=== PATIENT | male | born 1970 | race Caucasian/White ===

== ENCOUNTER 2016-10-16 19:28 | Emergency (ER) | payer MEDICARE, OTHER ==
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
--- NOTE | 2016-10-16 21:08 | XR ---
EXAMINATION TYPE: XR chest 2V DATE OF EXAM: 10/16/2016 9:02 PM COMPARISON: November 17, 2015 HISTORY: Pain TECHNIQUE: Frontal and lateral views of the chest are obtained. FINDINGS: There is no focal air space opacity, pleural effusion, or pneumothorax seen. The cardiac silhouette size is within normal limits. The osseous structures are intact. IMPRESSION: No acute cardiopulmonary process.
[2016-10-16 21:48] VITALS: BP 140/74; PULSE 88; RESP 18; TEMP 97.7
== END 2016-10-16 21:48 | disposition home or self-care (01) ==
LOC: EC 19:28
DX: M94.0 Chondrocostal junction syndrome [Tietze] (principal); Z87.891 Personal history of nicotine dependence
CPT/HCPCS: 71020; 99284

== ENCOUNTER 2016-12-12 19:42 | Emergency (ER) | payer MEDICARE, OTHER ==
[2016-12-12 19:53] VITALS: BP 124/83; PULSE 79; RESP 18; TEMP 97.1
[2016-12-12] MEDS ORDERED: CYCLOBENZAPRINE 10 MG TAB PO STA (20:10)
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
== END 2016-12-12 20:20 | disposition home or self-care (01) ==
LOC: EC 19:42
DX: M54.5 Low back pain (principal); Z87.891 Personal history of nicotine dependence
CPT/HCPCS: 99282; 99283

== ENCOUNTER 2016-12-20 19:26 | Emergency (ER) | payer MEDICARE ==
[2016-12-20 19:49] VITALS: BP 134/88; PULSE 60; RESP 18; TEMP 98.2
[2016-12-20] MEDS ORDERED: KETOROLAC 60 MG/2 ML VIAL IM STA (19:57)
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
--- NOTE | 2016-12-20 20:53 | XR ---
Lumbar spine HISTORY: Low back pain 2 views of the lumbar spine on 3 images Lumbar vertebral bodies show preserved height, alignment, and bone mineralization. Multilevel spondyl osis is present. Some mild loss of disc height present at L2-3, L5-S1. IMPRESSION: Degenerative disc disease.
== END 2016-12-20 21:03 ==
LOC: EC 19:26
DX: M51.36 Other intervertebral disc degeneration, lumbar region (principal); S39.012A Strain of muscle, fascia and tendon of lower back, initial encounter; Z87.891 Personal history of nicotine dependence; X58.XXXA Exposure to other specified factors, initial encounter
CPT/HCPCS: 99283; 96372; 72100; J1885

== ENCOUNTER 2017-05-13 10:46 | Emergency (ER) | payer MEDICARE, OTHER ==
[2017-05-13 10:58] VITALS: RESP 18
--- NOTE | 2017-05-13 11:48 | XR ---
EXAMINATION TYPE: XR tibia fibula LT DATE OF EXAM: 05/13/2017 COMPARISON: NONE HISTORY: Pain TECHNIQUE: 2 view left tibia and fibula FINDINGS: No acute fractures are evident. Joint spaces appear preserved. Soft tissues are unremarkabl e. IMPRESSION: 1. Normal left tibia and fibula.
--- NOTE | 2017-05-13 11:48 | XR ---
EXAMINATION TYPE: XR foot complete LT DATE OF EXAM: 05/13/2017 COMPARISON: NONE HISTORY: Pain TECHNIQUE: Three-view left foot FINDINGS: No acute fractures are evident. Joint spaces are preserved. Soft tissues are normal. IMPRESSION: 1. Normal three-view left foot
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
[2017-05-13 12:10] VITALS: BP 143/75; PULSE 67; TEMP 98.2
== END 2017-05-13 12:10 | disposition home or self-care (01) ==
LOC: EC 10:46
DX: M79.662 Pain in left lower leg (principal); M79.661 Pain in right lower leg; Z87.891 Personal history of nicotine dependence
CPT/HCPCS: 99283

== ENCOUNTER 2017-11-19 19:43 | Emergency (ER) | payer MEDICARE, OTHER ==
[2017-11-19 19:53] VITALS: BP 137/74; PULSE 91; RESP 18; TEMP 97.9
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
== END 2017-11-19 20:16 | disposition home or self-care (01) ==
LOC: EC 19:43
DX: J02.9 Acute pharyngitis, unspecified (principal); Z87.891 Personal history of nicotine dependence
CPT/HCPCS: 99282

== ENCOUNTER 2018-02-21 17:57 | Inpatient (IN) | payer MEDICARE, OTHER ==
[2018-02-21] MEDS ORDERED: SODIUM CHLORIDE 0.9% 1,000 ML IV STA (18:19)
[2018-02-21 18:56] LABS: Anisocytosis Slight; Basophils % (A) 1 %; Eosinophils # (A) 0.3 k/uL (0-0.7); Eosinophils % (A) 4 %; HCT 24.8 % (39.0-53.0); Hypochromasia Marked; Lymphocytes # (A) 1.3 k/uL (1.0-4.8); Lymphocytes % (A) 20 %; MCH 14.6 pg (25.0-35.0); MCV 56.3 fL (80.0-100.0); Microcytosis Marked; Monocytes # (A) 0.5 k/uL (0-1.0); Monocytes % (A) 7 %; Neutrophils # (A) 4.4 k/uL (1.3-7.7); Neutrophils % (A) 66 %; Platelet Count 269 k/uL (150-450); Poikilocytosis Slight; RDW 19.2 % (11.5-15.5); WBC 6.6 k/uL (3.8-10.6)
[2018-02-21 19:01] LABS: Calcium 10.8 mg/dL (8.4-10.2); HGB 6.4 gm/dL (13.0-17.5); Potassium 4.1 mmol/L (3.5-5.1); Total Bilirubin 0.4 mg/dL (0.2-1.3); Total Protein 6.5 g/dL (6.3-8.2)
[2018-02-21 19:07] LABS: Amorphous Sediment,Urine Few /hpf; Appearance,Urine Cloudy (Clear); Bilirubin,Urine Negative (Negative); Blood,Urine Negative (Negative); Color,Urine Light Yellow; Glucose,Urine (UA) Negative (Negative); Ketones,Urine Negative (Negative); Leukocyte Esterase,Urine Negative (Negative); Mucus,Urine Rare /hpf; Nitrite,Urine Negative (Negative); PH, Urine 6.5 (5.0-8.0); Protein,Urine Negative (Negative); Specific Gravity,Urine 1.008 (1.001-1.035); Urobilinogen,Urine <2.0 mg/dL (<2.0); WBC,Urine 2 /hpf (0-5)
[2018-02-21] MEDS ORDERED: PANTOPRAZOLE 40 MG/10 ML VIAL IVP STA (19:19)
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
[2018-02-21] MEDS: SODIUM CHLORIDE 0.9% 1,000 ML IV SCH (20:21)
[2018-02-21 22:03] VITALS: BMI 22.8
[2018-02-22] MEDS: ACETAMINOPHEN TAB 325 MG TAB PO PRN ×2 (03:58→18:05)
[2018-02-22 06:18] LABS: Anisocytosis Moderate; Basophils % (A) 0 %; Eosinophils # (A) 0.2 k/uL (0-0.7); Eosinophils % (A) 4 %; HCT 25.5 % (39.0-53.0); Hypochromasia Marked; Lymphocytes # (A) 1.1 k/uL (1.0-4.8); Lymphocytes % (A) 19 %; MCH 15.9 pg (25.0-35.0); MCHC 27.2 g/dL (31.0-37.0); MCV 58.5 fL (80.0-100.0); Mean Platelet Volume 9.3; Microcytosis Marked; Monocytes # (A) 0.5 k/uL (0-1.0); Monocytes % (A) 8 %; Neutrophils # (A) 3.8 k/uL (1.3-7.7); Neutrophils % (A) 66 %; Platelet Count 235 k/uL (150-450); Poikilocytosis Moderate; RBC 4.35 m/uL (4.30-5.90); RDW 20.8 % (11.5-15.5); WBC 5.7 k/uL (3.8-10.6)
[2018-02-22 06:26] LABS: HGB 6.9 gm/dL (13.0-17.5)
[2018-02-22 06:31] LABS: INR 1.1 (<1.2); Prothrombin Time 10.7 sec (9.0-12.0)
[2018-02-22 06:35] LABS: Partial Thromboplastin Time 21.3 sec (22.0-30.0)
[2018-02-22] MEDS: SODIUM CHLORIDE 0.9% 1,000 ML IV SCH ×2 (08:48→23:30)
[2018-02-22] MEDS: PANTOPRAZOLE 40 MG/10 ML VIAL IV SCH (12:01)
[2018-02-22 20:56] LABS: Anisocytosis Moderate; HCT 27.2 % (39.0-53.0); HGB 7.9 gm/dL (13.0-17.5); Hypochromasia Marked; MCH 17.5 pg (25.0-35.0); MCV 60.2 fL (80.0-100.0); Mean Platelet Volume 8.8; Microcytosis Marked; Platelet Count 234 k/uL (150-450); Poikilocytosis Marked; RBC 4.52 m/uL (4.30-5.90); RDW 23.1 % (11.5-15.5); WBC 6.8 k/uL (3.8-10.6)
[2018-02-22 21:08] LABS: Basophils # (M) 0.07 k/uL (0-0.2); Eosinophils # (M) 0.27 k/uL (0-0.7); Monocytes # (M) 0.34 k/uL (0-1.0); Neutrophils # (M) 4.42 k/uL (1.3-7.7); Neutrophils % (M) 65 %; Nucleated Red Blood Cells 0 /100 WBC (0-0); Total Cells Counted 100
[2018-02-22 21:09] LABS: Poikilocytosis (M) Present
[2018-02-22 21:10] LABS: Anisocytosis (M) Present; Hypochromasia (M) Present; Ovalocytes Present; Tear Drop Cells Present
[2018-02-22] MEDS: HYDROcodone/APAP 5-325MG 1 EACH TAB PO PRN (21:46)
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
[2018-02-23] MEDS: HYDROcodone/APAP 5-325MG 1 EACH TAB PO PRN ×2 (03:46→22:21)
[2018-02-23 06:36] LABS: Calcium 8.4 mg/dL (8.4-10.2); Potassium 4.3 mmol/L (3.5-5.1)
[2018-02-23 06:56] LABS: Anisocytosis Moderate; Basophils % (A) 1 %; Eosinophils # (A) 0.3 k/uL (0-0.7); Eosinophils % (A) 5 %; HCT 26.9 % (39.0-53.0); HGB 7.5 gm/dL (13.0-17.5); Hypochromasia Marked; Lymphocytes # (A) 1.2 k/uL (1.0-4.8); Lymphocytes % (A) 24 %; MCH 17.4 pg (25.0-35.0); MCHC 27.7 g/dL (31.0-37.0); MCV 62.7 fL (80.0-100.0); Mean Platelet Volume 6.5; Microcytosis Marked; Monocytes # (A) 0.4 k/uL (0-1.0); Monocytes % (A) 9 %; Neutrophils % (A) 59 %; Platelet Count 196 k/uL (150-450); Poikilocytosis Marked; RBC 4.29 m/uL (4.30-5.90); RDW 23.8 % (11.5-15.5); WBC 5.1 k/uL (3.8-10.6)
[2018-02-23] MEDS: PANTOPRAZOLE 40 MG/10 ML VIAL IV SCH (08:33)
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
[2018-02-23 10:21] LABS: Iron Saturation 3.46 (15.00-50.00)
[2018-02-23] MEDS: SODIUM CHLORIDE 0.9% 1,000 ML IV SCH (11:52)
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
[2018-02-24] MEDS: SODIUM CHLORIDE 0.9% 1,000 ML IV SCH (00:41)
[2018-02-24] MEDS ORDERED: SODIUM FERRIC GLUCONAT-SUCROSE 125 MG in SODIUM CHLORIDE 0.9% 100 ML IVPB SCH (09:00)
--- NOTE | 2018-02-24 09:14 | P.PN ---
Subjective Progress Note Date: 02/24/18 Principal diagnosis: Admitted with iron deficiency anemia diarrhea abdominal cramping. Presently feels well. Requesting discharge. Requesting diet advanced. Denies hematemesis hematochezia melena. Denies fever chills or abdominal pain. Admitted with iron deficiency anemia diarrhea abdominal cramping guaiac positive stool. Presently feels well. Requesting discharge. Requesting diet advanced. Denies hematemesis hematochezia melena. C. diff negative. Denies fever chills or abdominal pain. Hemoglobin 7.5 yesterday. MCV 62.7. Received IV iron. Objective - Vital Signs Vital signs: Vital Signs Temp 98.3 F 02/24/18 04:00 Pulse 59 L 02/24/18 04:00 Resp 18 02/24/18 04:00 BP 116/57 02/24/18 04:00 Pulse Ox 98 02/24/18 04:00 Intake & Output 02/23/18 02/24/18 02/24/18 18:59 06:59 18:59 Intake Total 342 1525 Output Total 800 Balance -458 1525 Weight 87.1 kg Intake: IV 900 Sodium Chloride 0.9% 1, 900 000 ml @ 75 mls/hr IV . [id number] [facility] Rx#:[id number] Intake, IV Titration 225 Amount Sodium Chloride 0.9% 1, 225 000 ml @ 75 mls/hr IV . [id number] [facility] Rx#:[id number] Oral 342 400 Output: Urine 800 Other: Voiding Method Toilet Toilet # Voids 2 - Exam General appearance: The patient is alert, oriented, in no acute distress. HET: Head is normocephalic and atraumatic. Pupils are equal and reactive. Oropharynx is clear without lesions. Neck: Supple without lymphadenopathy. Trachea midline. Heart: S1 S2. Regular rate and rhythm. Lungs: No crackles or wheezes are heard. Abdomen: Soft, nontender, nondistended with bowel sounds. No peritoneal signs. No palpable organomegaly or masses. Extremities: Normal skin color and turgor. No cyanosis, rash, ulceration, clubbing, or edema. Radial and pedal pulses are 2/4 bilaterally. Neurological: No focal deficits. Strength and sensation are grossly intact. - Labs CBC & Chem 7: 02/23/18 05:51 02/23/18 05:51 Labs: Abnormal Lab Results - Last 24 Hours (Table) 02/22/18 02/22/18 Range/Units 06:03 06:03 Iron 15 L (65-175) ug/dL Iron Saturation 3.46 L (15.00-50.00) Transferrin 410.0 H (204.0-354.0) mg/dL Ferritin 2.9 L (22.0-322.0) ng/mL Assessment and Plan (1) Iron deficiency anemia Current Visit: Yes Status: Acute Code(s): D50.9 - IRON DEFICIENCY ANEMIA, UNSPECIFIED SNOMED Code(s): 58114615 (2) Guaiac positive stools Current Visit: Yes Status: Acute Code(s): R19.5 - OTHER FECAL ABNORMALITIES SNOMED Code(s): 16621163 (3) Acute blood loss anemia Current Visit: Yes Status: Acute Code(s): D62 - ACUTE POSTHEMORRHAGIC ANEMIA SNOMED Code(s): 575492162 (4) Diarrhea Current Visit: Yes Status: Acute Code(s): R19.7 - DIARRHEA, UNSPECIFIED SNOMED Code(s): 43584127 (5) GI bleed Current Visit: Yes Status: Acute Code(s): K92.2 - GASTROINTESTINAL HEMORRHAGE, UNSPECIFIED SNOMED Code(s): 23320827 Plan: 1. EGD colonoscopy recommended however patient declines and is requesting discharge. Continue with iron supplementation on discharge. CBC 5-7 days in the outpatient setting. Return to office in 3-4 weeks for reevaluation and discussion of outpatient endoscopy. Patient is agreeable with this plan a care. Will advance diet. Discharge per medicine. Assessment and plan a care discussed with Dr. Sanchez
[2018-02-24] MEDS: PANTOPRAZOLE 40 MG/10 ML VIAL IV SCH (09:48)
[2018-02-24 11:12] LABS: Anisocytosis Marked; Basophils # (A) 0.1 k/uL (0-0.2); Basophils % (A) 1 %; Eosinophils # (A) 0.2 k/uL (0-0.7); Eosinophils % (A) 5 %; HCT 27.1 % (39.0-53.0); HGB 7.5 gm/dL (13.0-17.5); Hypochromasia Marked; Lymphocytes # (A) 1.1 k/uL (1.0-4.8); Lymphocytes % (A) 20 %; MCH 17.3 pg (25.0-35.0); MCHC 27.7 g/dL (31.0-37.0); MCV 62.5 fL (80.0-100.0); Mean Platelet Volume 6.1; Microcytosis Marked; Monocytes # (A) 0.3 k/uL (0-1.0); Monocytes % (A) 6 %; Neutrophils # (A) 3.5 k/uL (1.3-7.7); Neutrophils % (A) 66 %; Platelet Count 200 k/uL (150-450); Poikilocytosis Marked; RBC 4.34 m/uL (4.30-5.90); WBC 5.4 k/uL (3.8-10.6)
[2018-02-24 11:16] VITALS: RESP 16
[2018-02-24 14:29] VITALS: BP 116/68; PULSE 68; TEMP 97.8
== END 2018-02-24 14:59 | disposition home or self-care (01) | DRG 812 ==
LOC: EC 17:57 → 6SEL 19:41
PROVIDERS: ADMIT Internal Medicine; ATTEND Internal Medicine
PROC: 30230N1 Transfusion of Nonautologous Red Blood Cells into Peripheral Vein, Open Approach (ICD-10-PCS; principal; 2018-02-21)
DX: D62 Acute posthemorrhagic anemia (principal); K92.2 Gastrointestinal hemorrhage, unspecified; F32.9 Major depressive disorder, single episode, unspecified; F41.9 Anxiety disorder, unspecified; G89.29 Other chronic pain; K64.8 Other hemorrhoids; M54.2 Cervicalgia; R19.7 Diarrhea, unspecified; Z87.730 Personal history of (corrected) cleft lip and palate; Z87.891 Personal history of nicotine dependence
CPT/HCPCS: 36415; 80048; 80053; 81001; 82150; 82272; 82728; 83540; 83550; 83605; 84466; 85025; 85610; 85730; 86850; 86900; 86901; 86920; 87324; 96361; 96374; 99284

== ENCOUNTER 2018-09-09 20:30 | Emergency (ER) | payer MEDICARE, OTHER ==
[2018-09-09 20:38] VITALS: BP 150/71; PULSE 100; RESP 18; TEMP 98.7
[2018-09-09] MEDS ORDERED: NYSTATIN 100,000UNIT/GM CREAM 30 GM TUBE TOPICAL STA (21:23)
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
[2018-09-09] MEDS ORDERED: TRIAMCINOLONE 0.1% CREAM 80 GM TUBE TOPICAL STA (21:27)
== END 2018-09-09 22:14 | disposition home or self-care (01) ==
LOC: EC 20:30
DX: B35.6 Tinea cruris (principal); Z87.891 Personal history of nicotine dependence
CPT/HCPCS: 99283

== ENCOUNTER 2018-09-25 12:49 | Emergency (ER) | payer MEDICARE, OTHER ==
[2018-09-25 12:56] VITALS: BP 137/74; PULSE 78; RESP 20; TEMP 98.1
--- NOTE | 2018-09-25 13:49 | US ---
EXAMINATION TYPE: US venous doppler duplex LE RT DATE OF EXAM: 09/25/2018 1:44 PM COMPARISON: NONE CLINICAL HISTORY: Pain. Right leg pain and swelling SIDE PERFORMED: Right TECHNIQUE: The lower extremity deep venous system is examined utilizing real time linear array sonog maribel with graded compression, doppler sonography and color-flow sonography. VESSELS IMAGED: External Iliac Vein (EIV) Common Femoral Vein Deep Femoral Vein Greater Saphenous Vein * Femoral Vein Popliteal Vein Small Saphenous Vein * Proximal Calf Veins (* superficial vessels) Grayscale, color doppler, spectral doppler imaging performed of the deep veins of the right lower ext remity. There is normal flow, compressibility, vascular waveforms. Right Leg: Appears negative for DVT There is mild subcutaneous edema of the right lower extremity noted. IMPRESSION: No sonographic evidence of deep venous thrombosis within the right larger knee. Mild sub cutaneous edema is noted.
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
--- NOTE | 2018-09-25 14:17 | XR ---
EXAMINATION TYPE: XR tibia fibula RT DATE OF EXAM: 09/25/2018 CLINICAL HISTORY: Right leg lower extremity swelling after fall TECHNIQUE: Two views of the right leg are obtained. COMPARISON: None. FINDINGS: There is no acute fracture or dislocation seen in the right tibia or fibula. The right kn ee and ankle joints appear within normal limits. The overlying soft tissue appears unremarkable. IMPRESSION: There is no acute fracture or dislocation seen in the right tibia or fibula.
== END 2018-09-25 14:56 | disposition home or self-care (01) ==
LOC: EC 12:49
DX: M79.604 Pain in right leg (principal); Z87.891 Personal history of nicotine dependence; V18.9XXA Unspecified pedal cyclist injured in noncollision transport accident in traffic accident, initial encounter; Y92.410 Unspecified street and highway as the place of occurrence of the external cause
CPT/HCPCS: 99283

== ENCOUNTER 2018-10-11 07:46 | Emergency (ER) | payer MEDICARE, OTHER ==
[2018-10-11 07:53] VITALS: RESP 18
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
[2018-10-11 08:55] LABS: Appearance,Urine Clear (Clear); Bilirubin,Urine Negative (Negative); Blood,Urine Negative (Negative); Color,Urine Yellow; Glucose,Urine (UA) Negative (Negative); Ketones,Urine Negative (Negative); Leukocyte Esterase,Urine Negative (Negative); Nitrite,Urine Negative (Negative); Protein,Urine Negative (Negative); Urobilinogen,Urine <2.0 mg/dL (<2.0)
--- NOTE | 2018-10-11 09:54 | XR ---
EXAMINATION TYPE: XR chest 2V DATE OF EXAM: 10/11/2018 COMPARISON: 10/16/2016 INDICATION: Lower extremity swelling TECHNIQUE: Frontal and lateral views of the chest are obtained. FINDINGS: The heart size is normal. The pulmonary vasculature is normal. Subtle left lower lobe infiltrate may be present. This better visualized on the lateral projection. C orrelate for atelectasis or pneumonia.. IMPRESSION: 1. Clinical correlation recommended for left lower lobe atelectasis or pneumonia.
[2018-10-11] MEDS ORDERED: cefTRIAXone 1,000 MG VIAL (IM USE) IM STA (10:56)
--- NOTE | 2018-10-11 11:51 | US ---
EXAMINATION TYPE: US venous doppler duplex LE RT DATE OF EXAM: 10/11/2018 10:56 AM COMPARISON: US 09/25/2018 CLINICAL HISTORY: Pain. Swelling right leg SIDE PERFORMED: Right TECHNIQUE: The lower extremity deep venous system is examined utilizing real time linear array sonog maribel with graded compression, doppler sonography and color-flow sonography. VESSELS IMAGED: External Iliac Vein (EIV) Common Femoral Vein Deep Femoral Vein Greater Saphenous Vein * Femoral Vein Popliteal Vein Small Saphenous Vein * Proximal Calf Veins (* superficial vessels) Right Leg: Negative for DVT IMPRESSION: 1. Right lower extremity ultrasound negative for deep venous thrombosis.
[2018-10-11] MEDS ORDERED: ACETAMINOPHEN TAB 500 MG TAB PO STA (12:31)
[2018-10-11 12:35] VITALS: BP 109/79; PULSE 96; TEMP 98.9
== END 2018-10-11 13:14 | disposition home or self-care (01) ==
LOC: EC 07:46
DX: M79.89 Other specified soft tissue disorders (principal); J18.1 Lobar pneumonia, unspecified organism; R22.0 Localized swelling, mass and lump, head; Z87.891 Personal history of nicotine dependence
CPT/HCPCS: 81003; 87502; 71046; 93971; 99284; 96372; J0696

== ENCOUNTER 2019-02-10 13:30 | Inpatient (IN) | payer MEDICARE, OTHER ==
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
[2019-02-10 14:51] LABS: Anisocytosis Slight; Hypochromasia Marked; MCH 15.1 pg (25.0-35.0); MCHC 24.4 g/dL (31.0-37.0); Mean Platelet Volume 8.4; Microcytosis Marked; Platelet Count 221 k/uL (150-450); RBC 2.84 m/uL (4.30-5.90)
[2019-02-10 14:52] LABS: Appearance,Urine Clear (Clear); Bilirubin,Urine Negative (Negative); Blood,Urine Negative (Negative); Color,Urine Yellow; Glucose,Urine (UA) Negative (Negative); Ketones,Urine Negative (Negative); Leukocyte Esterase,Urine Negative (Negative); Nitrite,Urine Negative (Negative); PH, Urine 6.5 (5.0-8.0); Protein,Urine Negative (Negative); Specific Gravity,Urine 1.011 (1.001-1.035); Urobilinogen,Urine <2.0 mg/dL (<2.0)
[2019-02-10 15:00] LABS: ALT 22 U/L (21-72); AST 36 U/L (17-59); African American GFR (CKD) >90 (>60 ml/min/1.73 sqM); Albumin 3.1 g/dL (3.5-5.0); Alkaline Phosphatase 149 U/L (38-126); Anion Gap 9 mmol/L; Blood Urea Nitrogen 5 mg/dL (9-20); Calcium 8.7 mg/dL (8.4-10.2); Carbon Dioxide 24 mmol/L (22-30); Chloride 107 mmol/L (98-107); Glucose 115 mg/dL (74-99); Lipase 34 U/L (23-300); Potassium 3.1 mmol/L (3.5-5.1); Sodium 140 mmol/L (137-145); Total Bilirubin 0.3 mg/dL (0.2-1.3); Total Protein 5.6 g/dL (6.3-8.2)
[2019-02-10 15:02] LABS: HCT 17.6 % (39.0-53.0); HGB 4.3 gm/dL (13.0-17.5)
[2019-02-10] MEDS ORDERED: PANTOPRAZOLE 40 MG/10 ML VIAL IVP STA (15:05)
--- NOTE | 2019-02-10 15:18 | US ---
EXAMINATION TYPE: US abdomen limited DATE OF EXAM: 02/10/2019 COMPARISON: CT 06/11/2015 CLINICAL HISTORY: 48-year-old male with RUQ pain. TECHNIQUE: Multiple sonographic images of the right upper quadrant were obtained. FINDINGS: EXAM MEASUREMENTS: Liver Length: 18.8 cm Gallbladder Wall: 0.2 cm CBD: 1.2 cm Right Kidney: 10.4 x 5.2 x 4.9 cm Pancreas: Borderline prominent 2.8 mm main pancreatic duct. The pancreatic tail is obscured by bowel gas shadowing. Liver: Multiple, solid lesions scattered throughout liver, largest in right lobe= 8.3 x 7.5 x 8.9 cm . The largest in the left lobe = 2.3 x 2.6 x 3.3 cm. There is a scant amount of ascites lateral to right lobe Gallbladder: Slightly contracted Evidence for sonographic Ngo's sign: No CBD: Dilated Right Kidney: wnl IMPRESSION: 1. Multifocal hepatic masses largest measuring 8.3 cm on the right and 3.3 cm on the left, new from 1 . Correlate for multifocal HCC or metastatic disease. 2. Trace perihepatic ascites. 3. Dilated bile duct at 1.2 cm. Correlate with alkaline phosphatase and bilirubin levels to assess fo r potential biliary obstruction.
[2019-02-10 15:35] LABS: Eosinophils # (M) 0.35 k/uL (0-0.7); Lymphocytes # (M) 0.25 k/uL (1.0-4.8); Monocytes # (M) 0.25 k/uL (0-1.0); Neutrophils # (M) 4.15 k/uL (1.3-7.7); Neutrophils % (M) 83 %; Nucleated Red Blood Cells 0 /100 WBC (0-0); Total Cells Counted 100
[2019-02-10 15:36] LABS: Anisocytosis (M) Present; Hypochromasia (M) Present; Ovalocytes Present; Poikilocytosis (M) Present; Stomatocytes Present; Tear Drop Cells Present
[2019-02-10] MEDS ORDERED: NALOXONE 0.4 MG/ML 1 ML VIAL IV PRN (15:51)
[2019-02-10] MEDS: ACETAMINOPHEN TAB 325 MG TAB PO PRN (21:33)
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
[2019-02-11 00:32] LABS: Anisocytosis Marked; Basophils % (A) 0 %; Eosinophils # (A) 0.2 k/uL (0-0.7); Eosinophils % (A) 4 %; HCT 20.9 % (39.0-53.0); Hypochromasia Marked; Lymphocytes # (A) 0.6 k/uL (1.0-4.8); Lymphocytes % (A) 10 %; MCH 17.5 pg (25.0-35.0); MCHC 26.8 g/dL (31.0-37.0); MCV 65.2 fL (80.0-100.0); Mean Platelet Volume 8.7; Microcytosis Marked; Monocytes # (A) 0.5 k/uL (0-1.0); Monocytes % (A) 8 %; Neutrophils # (A) 4.6 k/uL (1.3-7.7); Neutrophils % (A) 75 %; Platelet Count 253 k/uL (150-450); Poikilocytosis Marked; RBC 3.21 m/uL (4.30-5.90); WBC 6.1 k/uL (3.8-10.6)
[2019-02-11 00:52] LABS: HGB 5.6 gm/dL (13.0-17.5)
[2019-02-11 07:06] LABS: ALT 22 U/L (21-72); AST 25 U/L (17-59); African American GFR (CKD) >90 (>60 ml/min/1.73 sqM); Albumin 3.4 g/dL (3.5-5.0); Alkaline Phosphatase 143 U/L (38-126); Anion Gap 9 mmol/L; Blood Urea Nitrogen 8 mg/dL (9-20); Calcium 8.5 mg/dL (8.4-10.2); Carbon Dioxide 25 mmol/L (22-30); Chloride 107 mmol/L (98-107); Glucose 86 mg/dL (74-99); Potassium 3.7 mmol/L (3.5-5.1); Sodium 141 mmol/L (137-145); Total Bilirubin 0.8 mg/dL (0.2-1.3)
[2019-02-11 07:53] LABS: Anisocytosis Moderate; Basophils % (A) 0 %; Eosinophils # (A) 0.2 k/uL (0-0.7); Eosinophils % (A) 4 %; HCT 25.8 % (39.0-53.0); Hypochromasia Marked; Lymphocytes # (A) 0.6 k/uL (1.0-4.8); Lymphocytes % (A) 9 %; MCH 18.8 pg (25.0-35.0); MCV 69.6 fL (80.0-100.0); Mean Platelet Volume 9.4; Microcytosis Marked; Monocytes # (A) 0.5 k/uL (0-1.0); Monocytes % (A) 8 %; Neutrophils # (A) 5.1 k/uL (1.3-7.7); Neutrophils % (A) 76 %; Platelet Count 276 k/uL (150-450); Poikilocytosis Marked; RBC 3.71 m/uL (4.30-5.90); RDW 22.1 % (11.5-15.5); WBC 6.6 k/uL (3.8-10.6)
[2019-02-11] MEDS: PANTOPRAZOLE 40 MG/10 ML VIAL IV SCH ×2 (08:24→21:58)
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
[2019-02-11] MEDS: IOPAMIDOL-300 CONTRAST 30 ML VIAL (ORAL USE) PO PRN ×2 (11:11→12:05)
--- NOTE | 2019-02-11 12:56 | CT ---
EXAMINATION TYPE: CT ChestAbdPelvis w con DATE OF EXAM: 02/11/2019 COMPARISON: Ultrasound 02/10/2019 HISTORY: Multiple hepatic masses, anemia. TECHNIQUE: Contiguous axial scanning of the performed with IV Contrast, patient injected with 100 mL of Isovue 300. Delayed images through the kidneys were obtained. Coronal/sagittal reconstructions per formed. CT DLP: 923.2 mGycm Automated exposure control for dose reduction was used. FINDINGS: Chest: Heart upper limits of normal in size without pericardial effusion. Borderline ectatic ascending aorta 3.5 cm with conventional arch vessel branching anatomy. No thoracic lymphadenopathy by CT size criteria. Hazy dependent atelectasis within the posterior lungs. No consolidation or pleural effusion. ABDOMEN: Small hiatal hernia but with some apparent soft tissue thickening at the GE junction region, axial im age 43. In addition, there seems to be an adjacent 1.1 cm lower left paraesophageal lymph node. Gastrohepatic ligament lymph node at 2.5 cm. Scattered borderline to mildly enlarged left sided mesenteric lymph nodes measuring up to 9 mm. Multiple bilateral heterogeneously enhancing hepatic masses. Approximately 7 masses are present. Larg est in the mid aspect of the liver measures 8.3 cm. Second largest mid liver just superiorly measures 5.4 cm. In the hepatic dome, lesion measures 4.5 cm. Bile duct measures 1.1 cm but with normal distal tapering. No intrahepatic biliary ductal dilatation identified. Portal venous system is patent. Trace perihepatic ascites and mild ascites tracking into the pelvis. No dilated small bowel or free air. Left-sided colonic diverticulosis with oral contrast progressing faintly into the rectum. Gallbladder, adrenal glands are within normal limits. Spleen enlarged at 16.7 cm on coronal series. Tiny subcentimeter hypodensity lower pole right kidney too small for accurate CT characterization, li antonella tiny cyst. A couple punctate nonobstructive 2 mm calculi are present in the left kidney. Pelvis: Bladder nondistended. Prostate gland measures 4.0 cm wide with central calcifications. Small to moder ate-sized bilateral hydroceles within the scrotum. Some prominent but nonenlarged inguinal lymph node s measure up to 1.3 cm on the left. Bones: No osseous destructive process seen. IMPRESSION: 1. MULTIPLE HEPATIC MASSES, POSSIBLY 7, LARGEST MEASURES 8.3 CM AND SECOND LARGEST MEASURES 5.4 CM. M ETASTATIC DISEASE FROM UNKNOWN PRIMARY AND MULTIFOCAL HCC ARE IN THE DIFFERENTIAL. 2. SMALL HIATAL HERNIA BUT WITH SOFT TISSUE THICKENING IN THIS LOCATION. THIS COULD REPRESENT MUCOSAL REDUNDANCY OR UNDERLYING MASS AT THE GE JUNCTION. 3. ADJACENT MILDLY ENLARGED 1.1 CM LOWER LEFT PARAESOPHAGEAL LYMPH NODE IS NONSPECIFIC. HOWEVER, META STATIC LYMPHADENOPATHY IS DEMONSTRATED WITH A 2.5 CM GASTROHEPATIC LIGAMENT LYMPH NODE. 4. TRACE PERIHEPATIC ASCITES AND MILD PELVIC FREE FLUID. 5. SPLENOMEGALY (16.7 CM). 6. NONOBSTRUCTIVE LEFT-SIDED NEPHROLITHIASIS AND LEFT-SIDED COLONIC DIVERTICULOSIS.
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
[2019-02-11] MEDS: ACETAMINOPHEN TAB 325 MG TAB PO PRN (16:25)
[2019-02-11 16:36] LABS: Alpha Fetoprotein, Tumor Mkr 8.8 ng/mL (0.0-7.9)
[2019-02-11 16:43] LABS: Iron Saturation 4.44 (15.00-50.00)
[2019-02-11 17:05] LABS: Cancer Antigen 19-9 7.8 U/mL (0.0-34.9)
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
[2019-02-12 06:44] LABS: Anisocytosis Marked; HCT 24.3 % (39.0-53.0); Hypochromasia Marked; MCHC 26.7 g/dL (31.0-37.0); MCV 67.4 fL (80.0-100.0); Mean Platelet Volume 8.8; Microcytosis Marked; Platelet Count 279 k/uL (150-450); Poikilocytosis Marked; RBC 3.61 m/uL (4.30-5.90); RDW 24.5 % (11.5-15.5)
[2019-02-12 06:53] LABS: HGB 6.5 gm/dL (13.0-17.5)
[2019-02-12] MEDS: PANTOPRAZOLE 40 MG/10 ML VIAL IV SCH ×2 (09:41→20:54)
[2019-02-12] MEDS ORDERED: LACTATED RINGERS 1,000 ML IV ONE ×2 (14:10)
--- NOTE | 2019-02-12 14:14 | P.PCN ---
Date of Procedure: 02/12/19 Procedure(s) Performed: BRIEF HISTORY: Patient is a 48-year-old, pleasant, white male admitted hospital with severe iron deficiency anemia and hemoglobin of 5.5 g/dL requiring blood transfusion. He did have an CT of abdomen that showed multiple lesions were suspicious for metastasis and thickening of the distal esophagus/rule out mass. Also patient has been complaining of dysphagia and hence he scheduled for an upper endoscopy to evaluate further.. PROCEDURE PERFORMED: Esophagogastroduodenoscopy with biopsy. PREOPERATIVE DIAGNOSIS: Dysphagia to solids/CT of abdomen showing multiple lesions in the liver suspicious for metastasis. IV sedation per anesthesia. PROCEDURE: After informed consent was obtained, the patient was brought into the endoscopy unit. IV sedation was administered by Anesthesia under continuous monitoring. Initially the Olympus GIF-140 video endoscope was inserted into the mouth. Esophagus intubated without any difficulty. It was gradually advanced into the distal esophagus where there was a circumferential ulcerated mass identified extending from 34-39 cm from the incisors. With gentle manipulation I was able to advance the scope into the stomach and duodenum and carefully examined. The bulb and the second part of the duodenum appeared normal. The scope at this time was withdrawn to the stomach, adequately insufflated with air, and upon careful examination, mucosa of the antrum, body, cardia and the fundus appeared normal. The scope was then withdrawn into the esophagus. The GE junction was located at 39 cm from the incisors. Multiple biopsies were done from the distal ulcerated esophageal mass. The rest of the esophagus appeared normal. The patient tolerated the procedure well. IMPRESSION: 1. Circumferential ulcerated distal esophageal mass extended from 34-39 cm from the incisors with luminal narrowing status post multiple biopsies. 2. Small to moderate size hiatal hernia. RECOMMENDATIONS: The findings of this examination were discussed with the patient . Findings will be discussed with oncology. He'll be started on a soft diet. Await biopsy results..
[2019-02-12] MEDS: ACETAMINOPHEN TAB 325 MG TAB PO PRN ×2 (14:44→23:00)
[2019-02-13] MEDS: ACETAMINOPHEN TAB 325 MG TAB PO PRN ×3 (05:10→22:44)
[2019-02-13 08:36] LABS: Anisocytosis Moderate; Basophils % (A) 0 %; Eosinophils # (A) 0.3 k/uL (0-0.7); Eosinophils % (A) 4 %; HCT 28.7 % (39.0-53.0); HGB 7.8 gm/dL (13.0-17.5); Hypochromasia Marked; Lymphocytes # (A) 0.8 k/uL (1.0-4.8); Lymphocytes % (A) 12 %; MCH 19.2 pg (25.0-35.0); MCHC 27.2 g/dL (31.0-37.0); MCV 70.5 fL (80.0-100.0); Mean Platelet Volume 9.8; Microcytosis Marked; Monocytes # (A) 0.6 k/uL (0-1.0); Monocytes % (A) 9 %; Neutrophils # (A) 4.6 k/uL (1.3-7.7); Neutrophils % (A) 72 %; Platelet Count 318 k/uL (150-450); Poikilocytosis Marked; RBC 4.06 m/uL (4.30-5.90); RDW 22.5 % (11.5-15.5); WBC 6.4 k/uL (3.8-10.6)
[2019-02-13] MEDS: PANTOPRAZOLE 40 MG/10 ML VIAL IV SCH ×2 (09:36→20:53)
[2019-02-13 10:42] LABS: Mixed Population RBC Present
[2019-02-13] MEDS: SODIUM FERRIC GLUCONAT-SUCROSE 125 MG in SODIUM CHLORIDE 0.9% 100 ML IVPB SCH (16:40)
[2019-02-14] MEDS: MORPHINE SULFATE 4 MG/ML SYRINGE IVP PRN ×3 (00:19→18:30)
[2019-02-14] MEDS: PANTOPRAZOLE 40 MG/10 ML VIAL IV SCH ×2 (07:16→22:51)
[2019-02-14] MEDS: SODIUM FERRIC GLUCONAT-SUCROSE 125 MG in SODIUM CHLORIDE 0.9% 100 ML IVPB SCH (08:58)
[2019-02-14] MEDS ORDERED: HYDROmorphone 1 MG/ML 1 ML SYRINGE IVP STA (09:52)
--- NOTE | 2019-02-14 10:31 | XR ---
EXAMINATION TYPE: XR abdomen 2V , 3 VIEWS DATE OF EXAM ORDERED: 02/14/2019 HISTORY: severe lower abd pain. COMPARISON: Previous study dated 11/17/2015. FINDINGS: The lung bases are clear. There is barium within the colon from a previous CT scan of the chest, abdomen and pelvis dated 2018. There is no evidence of obstruction or free air. No unusual calcifications are seen. IMPRESSION: NO ACUTE INTRA-ABDOMINAL ABNORMALITY.
[2019-02-14 11:08] LABS: AST 15 U/L (17-59); African American GFR (CKD) >90 (>60 ml/min/1.73 sqM); Albumin 3.4 g/dL (3.5-5.0); Alkaline Phosphatase 176 U/L (38-126); Anion Gap 9 mmol/L; Blood Urea Nitrogen 8 mg/dL (9-20); Carbon Dioxide 27 mmol/L (22-30); Chloride 106 mmol/L (98-107); Glucose 86 mg/dL (74-99); Potassium 4.2 mmol/L (3.5-5.1); Sodium 142 mmol/L (137-145); Total Bilirubin 0.5 mg/dL (0.2-1.3)
[2019-02-14 11:09] LABS: ALT 17 U/L (21-72)
[2019-02-14 11:27] LABS: Anisocytosis Marked; Basophils % (A) 0 %; Eosinophils # (A) 0.3 k/uL (0-0.7); Eosinophils % (A) 3 %; HCT 31.1 % (39.0-53.0); HGB 8.3 gm/dL (13.0-17.5); Hypochromasia Marked; Lymphocytes # (A) 0.8 k/uL (1.0-4.8); Lymphocytes % (A) 10 %; MCH 18.5 pg (25.0-35.0); MCHC 26.7 g/dL (31.0-37.0); MCV 69.3 fL (80.0-100.0); Mean Platelet Volume 7.3; Microcytosis Marked; Monocytes # (A) 0.6 k/uL (0-1.0); Monocytes % (A) 7 %; Neutrophils # (A) 6.7 k/uL (1.3-7.7); Neutrophils % (A) 78 %; Platelet Count 332 k/uL (150-450); Poikilocytosis Marked; RBC 4.49 m/uL (4.30-5.90); RDW 24.9 % (11.5-15.5); WBC 8.5 k/uL (3.8-10.6)
[2019-02-14 11:52] LABS: Mixed Population RBC Present
[2019-02-14] MEDS: DOCUSATE 100 MG CAP PO SCH ×2 (14:46→22:51)
[2019-02-14] MEDS: MORPHINE SULFATE ER 15 MG TABLET PO SCH ×2 (14:46→22:50)
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
[2019-02-15] MEDS: PANTOPRAZOLE 40 MG/10 ML VIAL IV SCH (09:31)
[2019-02-15] MEDS: DOCUSATE 100 MG CAP PO SCH ×2 (09:31→22:27)
[2019-02-15] MEDS: SODIUM FERRIC GLUCONAT-SUCROSE 125 MG in SODIUM CHLORIDE 0.9% 100 ML IVPB SCH (09:31)
[2019-02-15] MEDS: MORPHINE SULFATE ER 15 MG TABLET PO SCH ×2 (09:31→22:25)
[2019-02-15] MEDS: MORPHINE SULFATE 4 MG/ML SYRINGE IVP PRN (11:37)
[2019-02-15] MEDS: PANTOPRAZOLE 40 MG TABLET PO SCH (22:25)
[2019-02-16] MEDS ORDERED: PANTOPRAZOLE 40 MG TABLET PO SCH (07:30)
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
[2019-02-16] MEDS: PANTOPRAZOLE 40 MG TABLET PO SCH ×2 (08:34→22:35)
[2019-02-16] MEDS: MORPHINE SULFATE ER 15 MG TABLET PO SCH ×2 (08:35→22:35)
[2019-02-16] MEDS: DOCUSATE 100 MG CAP PO SCH ×2 (08:36→22:35)
[2019-02-16 09:19] LABS: Anisocytosis Marked; Basophils % (A) 0 %; Eosinophils # (A) 0.2 k/uL (0-0.7); Eosinophils % (A) 2 %; HCT 30.3 % (39.0-53.0); Hypochromasia Marked; Lymphocytes # (A) 0.7 k/uL (1.0-4.8); Lymphocytes % (A) 5 %; MCH 19.3 pg (25.0-35.0); MCHC 26.4 g/dL (31.0-37.0); MCV 73.1 fL (80.0-100.0); Mean Platelet Volume 7.9; Microcytosis Marked; Monocytes % (A) 8 %; Neutrophils % (A) 84 %; Platelet Count 296 k/uL (150-450); Poikilocytosis Marked; RBC 4.14 m/uL (4.30-5.90); RDW 24.2 % (11.5-15.5); WBC 13.1 k/uL (3.8-10.6)
[2019-02-16 09:30] LABS: ALT 12 U/L (21-72); AST 12 U/L (17-59); African American GFR (CKD) >90 (>60 ml/min/1.73 sqM); Albumin 2.8 g/dL (3.5-5.0); Alkaline Phosphatase 172 U/L (38-126); Anion Gap 9 mmol/L; Blood Urea Nitrogen 8 mg/dL (9-20); Calcium 8.7 mg/dL (8.4-10.2); Carbon Dioxide 28 mmol/L (22-30); Chloride 99 mmol/L (98-107); Glucose 92 mg/dL (74-99); Potassium 4.2 mmol/L (3.5-5.1); Sodium 136 mmol/L (137-145); Total Bilirubin 0.7 mg/dL (0.2-1.3); Total Protein 5.3 g/dL (6.3-8.2)
[2019-02-16] MEDS: SODIUM FERRIC GLUCONAT-SUCROSE 125 MG in SODIUM CHLORIDE 0.9% 100 ML IVPB SCH (09:54)
[2019-02-16 10:20] VITALS: BMI 24.9
--- NOTE | 2019-02-16 11:59 | P.PN ---
Subjective Progress Note Date: 02/16/19 Principal diagnosis: Anemia continue to await biopsy results from esophageal mass, anemia is stable and status post IV Ferrous sulfate x5 Objective - Vital Signs Vital signs: Vital Signs Temp 98.4 F 02/16/19 04:33 Pulse 94 02/16/19 04:33 Resp 18 02/16/19 04:33 BP 109/63 02/16/19 04:33 Pulse Ox 91 L 02/16/19 04:33 Intake & Output 02/15/19 02/16/19 02/16/19 18:59 06:59 18:59 Intake Total 100 Balance 100 Weight 76.6 kg Intake: Intake, IV Titration 100 Amount Sodium Ferric Gluconat- 100 Sucrose 125 mg In Sodium Chloride 0.9% 100 ml @ 100 mls/hr IVPB DAILY [facility] Rx#:[id number] Other: Voiding Method Toilet Toilet # Voids 4 1 # Bowel Movements 1 - Exam General: Alert and Oriented x3, No Acute Distress Head: Normocytic, Atraumatic Neck: Supple Mouth: No Lesions, No Thrush Eyes: Non-sclerotic No Palpable cervical, supraclavicular, axillary adenopathy Heart: Regular Rate, Regular Rhythm Lungs: Clear to Ausculations, No Wheeze, No Rhonchi, Diminishe bilateral lower lobes, No increased respiratory effort noted Abdomen: Soft, Non-Distended, Non-Tended, BSx4 Extremities: No Edema, Equal Strength Neurological: No Focal Defects: No sensory or motor deficits noted Psych: Calm and cooperative - Labs CBC & Chem 7: 02/16/19 08:19 02/16/19 08:19 Labs: Abnormal Lab Results - Last 24 Hours (Table) 02/16/19 02/16/19 Range/Units 08:19 08:19 WBC 13.1 H (3.8-10.6) k/uL RBC 4.14 L (4.30-5.90) m/uL Hgb 8.0 L (13.0-17.5) gm/dL Hct 30.3 L (39.0-53.0) % MCV 73.1 L (80.0-100.0) fL MCH 19.3 L (25.0-35.0) pg MCHC 26.4 L (31.0-37.0) g/dL RDW 24.2 H (11.5-15.5) % Neutrophils # 11.0 H (1.3-7.7) k/uL Lymphocytes # 0.7 L (1.0-4.8) k/uL Sodium 136 L (137-145) mmol/L BUN 8 L (9-20) mg/dL AST 12 L (17-59) U/L ALT 12 L (21-72) U/L Alkaline Phosphatase 172 H (38-126) U/L Total Protein 5.3 L (6.3-8.2) g/dL Albumin 2.8 L (3.5-5.0) g/dL Assessment and Plan Plan: CT scan - abdomen: report reviewed CT scan - chest: report reviewed CT scan - pelvis: report reviewed US - abdomen: report reviewed Assessment and Plan Liver lesion Esophageal Mass: - Status Post EGD with Biopsy 02.12.19 - Awaiting Path Iron deficiency anemia - Microcytic, hypochromic, history of iron deficient anemia. Pt has been transfused, transfuse to keep Hgb 7 or higher unless symptomatic. Iron studies ordered, supplementation as appropriate. DISPO PLAN: - Highly Suspicious of metastatic malignancy, consideration of inpatient treatment, await path - If patient is discharged in interim to follow-up with Dr. Martin in office 1-2 weeks to set up treatment plan - Will attempt to obtain MRI Brain staging.
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
[2019-02-17] MEDS: DOCUSATE 100 MG CAP PO SCH (08:32)
[2019-02-17] MEDS: PANTOPRAZOLE 40 MG TABLET PO SCH (08:32)
[2019-02-17] MEDS: MORPHINE SULFATE ER 15 MG TABLET PO SCH ×2 (08:33→18:54)
[2019-02-17 12:08] VITALS: BP 110/62; PULSE 79; RESP 17; TEMP 97.9
--- NOTE | 2019-02-17 12:56 | P.DS ---
<Camila Dorado - Last Filed: 02/17/19 12:38> Providers Expected date of discharge: 02/17/19 Hospital Course: Hospital course: Final diagnoses Liver lesion Esophageal mass Iron deficiency anemia Gait dysfunction Discharge disposition The patient is being discharged in a stable condition with guarded prognosis with his sister Chelsea and legal guardian is aware and is in agreement of this decision. Awaiting biopsy report from the EGD done on 02/12/2019. An MRI for brain staging is ordered and being done in office prior to discharge. Patient to follow-up with Dr. Martin in the office in 1-2 weeks to discuss a treatment plan. History of present illness This is a 48-year-old gentleman who was admitted to the hospital with suspected hepatocellular carcinoma with possible metastasis to the liver. Currently awaiting biopsy reports from the EGD done on 02/12/2019 of an esophageal mass. Case management discussed with legal guardian and family member sister Chelsea and the patient will be going home with her today to [place]. Sister is working on legal guardianship on this patient. Patient denies any shortness of breath, chest pain, or fevers at this time. Current labs are stable and iron was replaced while inpatient. Patient is being discharged home in stable condition with guarded prognosis as there are biopsies and MRIs pending at this time. Patient denies any nausea, vomiting, or diarrhea at this time. On exam vital signs are stable Cardio S1 and S2 normal Respiratory clear to auscultation, no rales or rhonchi noted Abdomen soft, mild tenderness noted on the right side Nervous system mild weakness, unsteady gait Pertinent Studies: EGD biopsy results of an esophageal mass that was done on 02/12/2019 are pending MRI of the brain for brain staging is pending Patient Condition at Discharge: Fair Plan - Discharge Summary Discharge Rx Participant: Yes New Discharge Prescriptions: New Pantoprazole Sodium [Protonix] 40 mg PO DAILY #30 tablet. Discharge Medication List Pantoprazole Sodium [Protonix] 40 mg PO DAILY #30 tablet. 02/13/19 [Rx] Follow up Appointment(s)/Referral(s): [facility] [Other] - 1 Week (Patient needs to choose a primary care physician, make an appointment for one week) Mychal Martin MD [STAFF PHYSICIAN] - 02/26/19 7:00 am Patient Instructions/Handouts: Pantoprazole (By mouth), Anemia (DC) Activity/Diet/Wound Care/Special Instructions: Activity Limited Continue diet advanced as tolerated <Dawit Mendoza - Last Filed: 02/17/19 21:11> Providers Date of admission: 02/10/19 15:42 Attending physician: Evangelista Isaac Consults: 02/10/19 15:51 Consult Physician Urgent Consulting Provider: Gwyn Addison Consult Reason/Comments: Anemia, hepatic mass Do you want consulting provider notified?: Yes Primary care physician: Stated None
--- NOTE | 2019-02-17 13:14 | P.PN ---
Subjective Progress Note Date: 02/17/19 Principal diagnosis: Anemia Stable, No acute distress, no family at bedside Objective - Vital Signs Vital signs: Vital Signs Temp 97.9 F 02/17/19 12:07 Pulse 79 02/17/19 12:07 Resp 17 02/17/19 12:07 BP 110/62 02/17/19 12:07 Pulse Ox 94 L 02/17/19 12:07 Intake & Output 02/16/19 02/17/19 02/17/19 18:59 06:59 18:59 Intake Total 100 Balance 100 Weight 76.6 kg Intake: Intake, IV Titration 100 Amount Sodium Ferric Gluconat- 100 Sucrose 125 mg In Sodium Chloride 0.9% 100 ml @ 100 mls/hr IVPB DAILY [facility] Rx#:[id number] Other: Voiding Method Toilet # Voids 1 - Exam General: Alert and Oriented x3, No Acute Distress Head: Normocytic, Atraumatic Neck: Supple Mouth: No Lesions, No Thrush Eyes: Non-sclerotic No Palpable cervical, supraclavicular, axillary adenopathy Heart: Regular Rate, Regular Rhythm Lungs: Clear to Ausculations, No Wheeze, No Rhonchi, Diminishe bilateral lower lobes, No increased respiratory effort noted Abdomen: Soft, Non-Distended, Non-Tended, BSx4 Extremities: No Edema, Equal Strength Neurological: No Focal Defects: No sensory or motor deficits noted Psych: Calm and cooperative - Labs CBC & Chem 7: 02/16/19 08:19 02/16/19 08:19 Assessment and Plan Plan: CT scan - abdomen: report reviewed CT scan - chest: report reviewed CT scan - pelvis: report reviewed US - abdomen: report reviewed Assessment and Plan Liver lesion Esophageal Mass: - Status Post EGD with Biopsy 02.12.19 - Awaiting Path Iron deficiency anemia - Microcytic, hypochromic, history of iron deficient anemia. Pt has been transfused, transfuse to keep Hgb 7 or higher unless symptomatic. Iron studies ordered, supplementation as appropriate. DISPO PLAN: - Highly Suspicious of metastatic malignancy, consideration of inpatient treatment, await path - If patient is discharged in interim to follow-up with Dr. Martin in office 1-2 weeks to set up treatment plan - He has a legal appointed gaurdian although sister Sister Chelsea involved is aware of outpatient plan. - MRI Brain staging. Addendum: 1915 = Path is resulted high grade adenocarcinoma. Will send tissue for PDL1, HER2, NTRK, Next gen sequencing and follow-up in office.
--- NOTE | 2019-02-17 17:14 | MR ---
EXAMINATION TYPE: MR brain wo/w con DATE OF EXAM: 02/17/2019 COMPARISON: None HISTORY: Hepatic mass, intial staging TECHNIQUE: Multiplanar, multisequence images of the brain and brainstem is performed without and with IV contras t, utilizing 7.5 mL intravenous Gadavist . FINDINGS: There is cerebral cortical atrophy. There is no mass effect nor midline shift. There is no sign of intracranial hemorrhage. There is mucosal thickening in both maxillary sinuses. Sella turcica appears normal. Corpus callosum appears normal. There is no evidence of cortical infarc t. On the FLAIR and T2 images there are white matter high signal foci at the davalos-white matter juncti on of both cerebral hemispheres. This is more on the left side. These measure up to 9 mm. Total numbe r is approximately 15. The contrast images show no pathologic enhancement. There is normal contrast opacification of the alberto ous sinuses. IMPRESSION: Mild cerebral atrophy. No acute intracranial abnormality. White matter multiple high sign al foci are somewhat peripheral and likely related to chronic small vessel ischemia. Maxillary sinusitis. There is no evidence of intracranial metastatic disease.
== END 2019-02-17 20:30 | disposition home or self-care (01) | DRG 375 ==
LOC: EEVIPCON 13:30 → EC 13:30 → 3SCARD 15:42 → 3NMEDONC 02-13 10:16
PROVIDERS: ADMIT Internal Medicine; ATTEND Internal Medicine
PROC: 30233N1 Transfusion of Nonautologous Red Blood Cells into Peripheral Vein, Percutaneous Approach (ICD-10-PCS; 2019-02-10)
PROC: 0DB38ZX Excision of Lower Esophagus, Via Natural or Artificial Opening Endoscopic, Diagnostic (ICD-10-PCS; principal; 2019-02-12 09:20)
DX: C15.5 Malignant neoplasm of lower third of esophagus (principal); C78.7 Secondary malignant neoplasm of liver and intrahepatic bile duct; R18.8 Other ascites; R13.10 Dysphagia, unspecified; K44.9 Diaphragmatic hernia without obstruction or gangrene; R26.81 Unsteadiness on feet; M54.9 Dorsalgia, unspecified; D50.9 Iron deficiency anemia, unspecified; G89.29 Other chronic pain; G31.84 Mild cognitive impairment of uncertain or unknown etiology; M54.2 Cervicalgia; F89 Unspecified disorder of psychological development; K64.9 Unspecified hemorrhoids; Z87.730 Personal history of (corrected) cleft lip and palate; Z87.891 Personal history of nicotine dependence
CPT/HCPCS: 36415; 43239; 70553; 71260; 74019; 74177; 76705; 80053; 81003; 82105; 82272; 82378; 82728; 83540; 83550; 83690; 85025; 85027; 85610; 86301; 86850; 86900; 86901; 86920; 88305; 88313; 88341; 88342; 96374; 99291